=== PATIENT | female | born 1955 | race Caucasian/White ===

== ENCOUNTER 2016-08-04 19:40 | Inpatient (IN) | payer OTHER ==
[~2016-08-04] VITALS: Ht 160 cm; Wt 76.4 kg
[~2016-08-04 19:40] MED LIST: ABILIFY2 MG PO; ALBENZA200 MG PO; AMITRIPTYLINE H25 MG PO; ANAPROX DS550 M1 PO; ATARAX,VISTARIL25 MG PO; ATARAX,VISTARIL50 MG PO; BENTYL20 MG PO; BUTALB-APAP-CA1 EACH PO; BUTALB-CAFF-AC1 EACH PO; CELEXA20 MG PO; CIPRO500 MG PO; CLONAZEPAM0.5 MG PO; DIVALPROEX SOD250 M1 PO; GABAPENTIN300 MG PO; KEFLEX500 MG PO; KLONOPIN; NORCO 5/3251 TABLET PO; OMEPRAZOLE20 MG PO; PERCOCET 5/31 TABLET PO; PHENERGAN-CODE120 ML PO; PREDNISONE10 MG PO; SEROQUEL100 MG PO; SEROQUEL50 MG PO; TRAZODONE HCL100 MG PO; TRAZODONE HCL150 MG PO; TRAZODONE HCL50 MG PO; TYLENOL WITH C1 EACH PO; VICODIN,LORT1 TABLET PO; VIIBRYD20 MG PO; VIIBRYD40 MG PO; ZOFRAN8 MG PO; [UNRECOGNIZED DRUG - REMARK]
[2016-08-04 21:18] LABS: CHLORIDE 102 mEq/L (99-109); POTASSIUM 2.9 mEq/L (3.7-5.4); SODIUM 140 mEq/L (136-147)
[2016-08-04 21:19] LABS: GLUCOSE 108 mg/dL (70-99)
[2016-08-04 21:21] LABS: ANION GAP 13 MEQ/L (2-14); HEMATOCRIT 39.2 % (36.0-46.0); MCH 28.8 PG (29.0-34.0); MCHC 34.4 G/DL (30.0-36.0); MCV 83.6 FL (83-99); MEAN PLAT.VOLUME 10.3 uM^3 (9.5-12.4); PLATELET COUNT 442 K/uL (156-360); RED BLOOD COUNT 4.69 M/uL (3.80-5.20); WHITE BLOOD COUNT 18.5 K/uL (4.1-10.2)
[2016-08-04 21:23] LABS: GFR ESTIMATE (CALCULATED) > 59 mL/min/
[2016-08-04 21:24] LABS: UREA NITROGEN (BUN) 6 mg/dL (9-23)
[2016-08-04 21:54] LABS: D-DIMER ELISA 0.74 mg/L FEU (< 0.57)
[2016-08-04 22:45] LABS: INFLUENZA A VIRAL ANTIGEN NEGATIVE; INFLUENZA B VIRAL ANTIGEN NEGATIVE
[2016-08-04] MEDS ORDERED: SERTRALINE HCL100 MG PO (23:02)
[2016-08-05 01:06] VITALS: BP 121/70
[2016-08-05 01:20] VITALS: BP 121/70
[2016-08-05 05:27] VITALS: BP 108/63
[2016-08-05 06:30] LABS: HEMATOCRIT 35.2 % (36.0-46.0); MCH 28.1 PG (29.0-34.0); MCHC 33.2 G/DL (30.0-36.0); MCV 84.4 FL (83-99); MEAN PLAT.VOLUME 10.3 uM^3 (9.5-12.4); PLATELET COUNT 415 K/uL (156-360); RBC DIS.WIDTH-SD 39.3 % (39-53); RED BLOOD COUNT 4.17 M/uL (3.80-5.20); WHITE BLOOD COUNT 17.3 K/uL (4.1-10.2)
[2016-08-05 06:51] LABS: EOSINOPHIL (%) 0.1 % (0-5); IMMATURE GRANULOCYTE (%) 1.6 % (0.0-0.7); IMMATURE GRANULOCYTE COUNT 0.3 K/uL; LYMPHOCYTE COUNT 1.3 K/uL (1.0-2.8); MONOCYTE (%) 1.4 % (3-12); MONOCYTE COUNT 0.2 K/uL (0-0.8); NEUTROPHIL (%) 89.4 % (45-76); NEUTROPHIL COUNT 15.4 K/uL (1.8-6.4)
[2016-08-05 06:54] LABS: ANION GAP 10 MEQ/L (2-14); CHLORIDE 106 MEQ/L (99-109); GFR ESTIMATE (CALCULATED) > 59 mL/min/; GLUCOSE 172 mg/dL (70-99); SAMPLE HEMOLYSIS CHECK 0; SAMPLE ICTERIC CHECK 0; SAMPLE LIPEMIA CHECK 0; SODIUM 141 MEQ/L (136-147); UREA NITROGEN (BUN) 6 mg/dL (9-23)
[2016-08-05 06:55] LABS: POTASSIUM 3.6 MEQ/L (3.7-5.4)
[2016-08-05 08:09] VITALS: BP 117/67
[2016-08-05 17:35] VITALS: BP 126/83
[2016-08-05 20:24] VITALS: BP 121/65
[2016-08-06 05:57] LABS: HEMATOCRIT 33.3 % (36.0-46.0); MCHC 33.3 G/DL (30.0-36.0); MCV 84.1 FL (83-99); MEAN PLAT.VOLUME 10.3 uM^3 (9.5-12.4); PLATELET COUNT 458 K/uL (156-360); RBC DIS.WIDTH-SD 39.1 % (39-53); RED BLOOD COUNT 3.96 M/uL (3.80-5.20)
[2016-08-06 05:58] LABS: WHITE BLOOD COUNT 28.5 K/uL (4.1-10.2)
[2016-08-06 06:19] LABS: ANION GAP 12 MEQ/L (2-14); CHLORIDE 108 MEQ/L (99-109); GFR ESTIMATE (CALCULATED) > 59 mL/min/; GLUCOSE 139 mg/dL (70-99); POTASSIUM 3.6 MEQ/L (3.7-5.4); SAMPLE HEMOLYSIS CHECK 0; SAMPLE ICTERIC CHECK 0; SAMPLE LIPEMIA CHECK 0; SODIUM 142 MEQ/L (136-147); UREA NITROGEN (BUN) 14 mg/dL (9-23)
[2016-08-06 07:15] VITALS: BP 135/66
[2016-08-06 08:51] LABS: MAGNESIUM 1.9 mg/dl (1.3-2.7)
[2016-08-06 11:54] VITALS: BP 126/68
[2016-08-06 16:34] VITALS: BP 130/64
[2016-08-06 20:20] VITALS: BP 135/81
[2016-08-07 00:09] VITALS: BP 139/79
[2016-08-07 07:22] LABS: INTERNAL CONTROL VALID? YES
[2016-08-07 08:53] VITALS: BP 139/87
[2016-08-07 16:08] VITALS: BP 130/77
[2016-08-07 19:57] VITALS: BP 165/77
[2016-08-07 23:25] VITALS: BP 138/81
[2016-08-08 07:14] VITALS: BP 150/88
[2016-08-08 15:13] VITALS: BP 157/81
[2016-08-08 23:56] VITALS: BP 143/75
[2016-08-09 03:56] VITALS: BP 163/82
[2016-08-09 08:27] VITALS: BP 175/85
[2016-08-09 09:26] LABS: HEMATOCRIT 35.9 % (36.0-46.0); MCH 28.4 PG (29.0-34.0); MCHC 33.4 G/DL (30.0-36.0); MCV 84.9 FL (83-99); MEAN PLAT.VOLUME 10.5 uM^3 (9.5-12.4); PLATELET COUNT 434 K/uL (156-360); RBC DIS.WIDTH-CV 13.2 % (11.8-14.6); RBC DIS.WIDTH-SD 40.1 % (39-53); RED BLOOD COUNT 4.23 M/uL (3.80-5.20)
[2016-08-09 09:27] LABS: WHITE BLOOD COUNT 17.6 K/uL (4.1-10.2)
[2016-08-09 09:55] LABS: ANION GAP 12 MEQ/L (2-14); CHLORIDE 103 MEQ/L (99-109); GFR ESTIMATE (CALCULATED) > 59 mL/min/; GLUCOSE 117 mg/dL (70-99); POTASSIUM 3.6 MEQ/L (3.7-5.4); SAMPLE HEMOLYSIS CHECK 0; SAMPLE ICTERIC CHECK 0; SAMPLE LIPEMIA CHECK 0; SODIUM 141 MEQ/L (136-147); UREA NITROGEN (BUN) 17 mg/dL (9-23)
[2016-08-09] MEDS ORDERED: SPIRIVA RESPIMAT4 GM IH (12:08)
[2016-08-09] MEDS ORDERED: CEFDINIR300 MG PO (12:08)
[2016-08-09] MEDS ORDERED: PREDNISONE10 MG PO (12:08)
[2016-08-09] MEDS ORDERED: PROVENTIL,VENTOL2 MG PO (12:08)
[2016-08-09] MEDS ORDERED: ADVAIR HFA120 INHALA IH (12:08)
[2016-08-09] MEDS ORDERED: TUDORZA PRESS400 MCG IH (16:20)
== END 2016-08-09 15:19 | disposition home or self-care (01) | DRG 190 ==
LOC: EME 19:40 → RME 19:40 → EDOF 23:37 → 3EAST 23:37
PROVIDERS: Hospitalist; Internal Medicine; Internal Medicine Infectious Disease; Nurse Practitioner Adult Health; Physician Assistant
DX: J44.0 Chronic obstructive pulmonary disease with (acute) lower respiratory infection (principal); J18.9 Pneumonia, unspecified organism; J90 Pleural effusion, not elsewhere classified; J44.1 Chronic obstructive pulmonary disease with (acute) exacerbation; E87.6 Hypokalemia; F31.9 Bipolar disorder, unspecified; K44.9 Diaphragmatic hernia without obstruction or gangrene; Z87.891 Personal history of nicotine dependence; Z77.22 Contact with and (suspected) exposure to environmental tobacco smoke (acute) (chronic)
CPT/HCPCS: 71010; 71020; 71275; 80048; 83605; 83735; 85025; 85027; 85379; 87040; 87070; 87205; 87449; 87502; 93005; 94640; 94640 76; 94799; 99202; 99281; 99285; J0456; J0696; J1644; J2930; J3480; J7030; J7050; J7512

== ENCOUNTER 2016-09-07 16:47 | Emergency (ER) | payer OTHER ==
[~2016-09-07] VITALS: Ht 160 cm; Wt 75.6 kg
[~2016-09-07 16:47] MED LIST changes: +ADVAIR HFA120 INHALA IH; +CEFDINIR300 MG PO; +PROVENTIL,VENTOL2 MG PO; +SERTRALINE HCL100 MG PO; +SPIRIVA RESPIMAT4 GM IH; +TUDORZA PRESS400 MCG IH
[2016-09-07 17:21] LABS: HEMATOCRIT 42.2 % (36.0-46.0); MCH 27.5 PG (29.0-34.0); MCHC 32.5 G/DL (30.0-36.0); MCV 84.6 FL (83-99); MEAN PLAT.VOLUME 9.4 uM^3 (9.5-12.4); PLATELET COUNT 293 K/uL (156-360); RBC DIS.WIDTH-CV 14.5 % (11.8-14.6); RBC DIS.WIDTH-SD 44.2 % (39-53); RED BLOOD COUNT 4.99 M/uL (3.80-5.20); WHITE BLOOD COUNT 8.7 K/uL (4.1-10.2)
[2016-09-07 17:30] LABS: CHLORIDE 107 mEq/L (99-109); SODIUM 140 mEq/L (136-147)
[2016-09-07 17:32] LABS: GLUCOSE 102 mg/dL (70-99)
[2016-09-07 17:33] LABS: ANION GAP 10 MEQ/L (2-14)
[2016-09-07 17:34] LABS: TOTAL BILIRUBIN 0.5 mg/dL (0.0-1.0)
[2016-09-07 17:35] LABS: ALKALINE PHOSPHATASE 106 IU/L (3-129)
[2016-09-07 17:36] LABS: GFR ESTIMATE (CALCULATED) > 59 mL/min/
[2016-09-07 17:37] LABS: UREA NITROGEN (BUN) 11 mg/dL (9-23)
[2016-09-07 17:39] LABS: LIPASE 22 U/L (1.0-51.0)
[2016-09-07 18:48] VITALS: BP 133/97
== END 2016-09-07 19:14 | disposition home or self-care (01) ==
LOC: EME 16:47
PROVIDERS: Emergency Medicine
DX: R10.32 Left lower quadrant pain (principal); I10 Essential (primary) hypertension; K21.9 Gastro-esophageal reflux disease without esophagitis; Z87.442 Personal history of urinary calculi; Z87.891 Personal history of nicotine dependence
CPT/HCPCS: 71020; 74177; 80053; 83690; 85027; 99281; 99285; J2270; J7030

== ENCOUNTER 2016-10-10 20:18 | Emergency (ER) | payer OTHER ==
[~2016-10-10] VITALS: Ht 160 cm; Wt 73.1 kg
[2016-10-10 21:48] LABS: ADD MIUA? YES; BILIRUBIN NEGATIVE; BLOOD NEGATIVE; GLUCOSE (STRIP) NEGATIVE; KETONES 5; LEUKOCYTES SMALL; NITRITE NEGATIVE; PROTEIN (STRIP) 30; SPECIFIC GRAVITY 1.024 (1.000-1.030); UROBILINOGEN 0.2 MG/DL (0.2-1.0)
[2016-10-10 21:58] LABS: BACTERIA RARE /HPF; COLOR DK YELLOW ((YELLOW)); EPITHELIAL CELLS 1+ /HPF; MUCUS 4+ /LPF; RED BLOOD CELLS 0-5 /HPF (0-5)
[2016-10-10 22:07] LABS: INFLUENZA A VIRAL ANTIGEN NEGATIVE; INFLUENZA B VIRAL ANTIGEN NEGATIVE
[2016-10-10] MEDS ORDERED: CIPRO500 MG PO (22:18)
[2016-10-10 22:49] VITALS: BP 144/96
== END 2016-10-10 22:53 | disposition home or self-care (01) ==
LOC: EME 20:18
PROVIDERS: Emergency Medicine
DX: J06.9 Acute upper respiratory infection, unspecified (principal); N30.00 Acute cystitis without hematuria; I10 Essential (primary) hypertension; K21.9 Gastro-esophageal reflux disease without esophagitis; Z87.442 Personal history of urinary calculi; Z87.891 Personal history of nicotine dependence
CPT/HCPCS: 71020; 81003; 87502; 99281; 99284

== ENCOUNTER 2017-01-19 13:00 | Day surgery (SDC) | payer OTHER ==
[~2017-01-19] VITALS: Ht 160 cm; Wt 72.6 kg
[~2017-01-19 13:00] MED LIST changes: +FLEXERIL5 MG PO; +PERCOCET 7.51 TABLET PO
== END 2017-01-19 15:04 | disposition home or self-care (01) ==
LOC: PAIN 13:00 → SDC 14:15 → PAIN 15:04
PROC: 3E0S33Z Introduction of Anti-inflammatory into Epidural Space, Percutaneous Approach (ICD-10-PCS; principal; 2017-01-19)
DX: M51.16 Intervertebral disc disorders with radiculopathy, lumbar region (principal); F41.9 Anxiety disorder, unspecified; G89.29 Other chronic pain; M47.26 Other spondylosis with radiculopathy, lumbar region; M48.06 Spinal stenosis, lumbar region; Z87.891 Personal history of nicotine dependence; Z88.0 Allergy status to penicillin; Z88.6 Allergy status to analgesic agent; F32.9 Major depressive disorder, single episode, unspecified; K21.9 Gastro-esophageal reflux disease without esophagitis
CPT/HCPCS: J1100; J2250; J3010

== ENCOUNTER 2017-01-28 20:13 | Emergency (ER) | payer OTHER ==
[~2017-01-28] VITALS: Ht 157.5 cm; Wt 75.6 kg
[2017-01-28 21:30] LABS: HEMATOCRIT 39.8 % (36.0-46.0); MCHC 32.9 G/DL (30.0-36.0); MCV 82.1 FL (83-99); PLATELET COUNT 267 K/uL (156-360); RBC DIS.WIDTH-CV 13.7 % (11.8-14.6); RBC DIS.WIDTH-SD 40.7 % (39-53); RED BLOOD COUNT 4.85 M/uL (3.80-5.20); WHITE BLOOD COUNT 11.6 K/uL (4.1-10.2)
[2017-01-28 21:40] LABS: CHLORIDE 108 mEq/L (99-109); POTASSIUM 3.2 mEq/L (3.7-5.4); SODIUM 143 mEq/L (136-147)
[2017-01-28 21:42] LABS: GLUCOSE 100 mg/dL (70-99)
[2017-01-28 21:43] LABS: ANION GAP 11 MEQ/L (2-14)
[2017-01-28 21:44] LABS: TOTAL BILIRUBIN 0.8 mg/dL (0.0-1.0)
[2017-01-28 21:45] LABS: ALKALINE PHOSPHATASE 101 IU/L (3-129)
[2017-01-28 21:46] LABS: GFR ESTIMATE (CALCULATED) > 59 mL/min/
[2017-01-28 21:47] LABS: UREA NITROGEN (BUN) 13 mg/dL (9-23)
[2017-01-28] MEDS ORDERED: ZITHROMAX Z-PA250 MG PO (22:31)
[2017-01-28] MEDS ORDERED: PREDNISONE10 M1 PO (22:31)
[2017-01-28 22:37] VITALS: BP 142/87
== END 2017-01-28 22:37 | disposition home or self-care (01) ==
LOC: EME 20:13 → RME 20:13
PROVIDERS: Physician Assistant
DX: J06.9 Acute upper respiratory infection, unspecified (principal); E87.6 Hypokalemia
CPT/HCPCS: 71020; 80053; 85027; 93005; 99281; 99284

== ENCOUNTER 2017-03-10 08:56 | Day surgery (SDC) | payer OTHER ==
[~2017-03-10] VITALS: Ht 160 cm; Wt 72.6 kg
[~2017-03-10 08:56] MED LIST changes: +PREDNISONE10 M1 PO; +ZITHROMAX Z-PA250 MG PO
== END 2017-03-10 11:25 | disposition home or self-care (01) ==
LOC: PAIN 08:56 → SDC 11:15 → PAIN 11:15
DX: M47.26 Other spondylosis with radiculopathy, lumbar region (principal); M54.5 Low back pain; G89.29 Other chronic pain; M48.06 Spinal stenosis, lumbar region; K21.9 Gastro-esophageal reflux disease without esophagitis; F41.8 Other specified anxiety disorders; Z79.891 Long term (current) use of opiate analgesic; Z88.0 Allergy status to penicillin; Z87.891 Personal history of nicotine dependence
CPT/HCPCS: J1100; J2250; J3010

== ENCOUNTER 2017-05-19 17:15 | Emergency (ER) | payer OTHER ==
[~2017-05-19] VITALS: Ht 157.5 cm; Wt 70.0 kg
[2017-05-19] MEDS ORDERED: ULTRAM50 MG PO ×2 (20:20→20:21)
[2017-05-19 20:28] VITALS: BP 150/102
== END 2017-05-19 20:28 | disposition home or self-care (01) ==
LOC: EME 17:15
DX: G56.01 Carpal tunnel syndrome, right upper limb (principal); F32.9 Major depressive disorder, single episode, unspecified
CPT/HCPCS: 73110; 99281; 99283

== ENCOUNTER 2017-06-18 12:19 | Day surgery (SDC) | payer OTHER ==
[~2017-06-18 12:19] MED LIST changes: +ULTRAM50 MG PO
== END 2017-06-18 14:20 | disposition home or self-care (01) ==
LOC: PAIN 12:19 → SDC 13:15 → PAIN 14:20
DX: M47.26 Other spondylosis with radiculopathy, lumbar region (principal); M51.16 Intervertebral disc disorders with radiculopathy, lumbar region; G89.29 Other chronic pain; M48.061 Spinal stenosis, lumbar region without neurogenic claudication; F41.8 Other specified anxiety disorders; K21.9 Gastro-esophageal reflux disease without esophagitis; Z87.891 Personal history of nicotine dependence; Z88.0 Allergy status to penicillin
CPT/HCPCS: J1030; J2250; J3010; S0020

== ENCOUNTER 2017-06-25 12:12 | Day surgery (SDC) | payer OTHER ==
[~2017-06-25] VITALS: Ht 160 cm; Wt 67.1 kg
== END 2017-06-25 14:14 | disposition home or self-care (01) ==
LOC: PAIN 12:12
PROC: BR161ZZ Fluoroscopy of Lumbar Facet Joint(s) using Low Osmolar Contrast (ICD-10-PCS; principal; 2017-06-25)
PROC: 3E0T3BZ Introduction of Anesthetic Agent into Peripheral Nerves and Plexi, Percutaneous Approach (ICD-10-PCS; principal; 2017-06-25)
PROC: 3E0T33Z Introduction of Anti-inflammatory into Peripheral Nerves and Plexi, Percutaneous Approach (ICD-10-PCS; principal; 2017-06-25)
DX: M47.26 Other spondylosis with radiculopathy, lumbar region (principal); M48.061 Spinal stenosis, lumbar region without neurogenic claudication; M54.5 Low back pain; G89.29 Other chronic pain; M51.16 Intervertebral disc disorders with radiculopathy, lumbar region; Z87.891 Personal history of nicotine dependence; K21.9 Gastro-esophageal reflux disease without esophagitis; F41.8 Other specified anxiety disorders; Z79.891 Long term (current) use of opiate analgesic; Z88.0 Allergy status to penicillin; R94.31 Abnormal electrocardiogram [ECG] [EKG]
CPT/HCPCS: J1030; J2250; J3010; S0020

== ENCOUNTER 2017-09-03 12:59 | Day surgery (SDC) | payer OTHER ==
[~2017-09-03] VITALS: Ht 160 cm; Wt 63.5 kg
[~2017-09-03 12:59] MED LIST changes: +DESYREL100 MG PO; +LYRICA100 MG PO; -SERTRALINE HCL100 MG PO; +ZOLOFT100 MG PO
== END 2017-09-03 15:00 | disposition home or self-care (01) ==
LOC: PAIN 12:59
DX: M51.16 Intervertebral disc disorders with radiculopathy, lumbar region (principal); M47.816 Spondylosis without myelopathy or radiculopathy, lumbar region; G89.29 Other chronic pain; M48.061 Spinal stenosis, lumbar region without neurogenic claudication; F41.9 Anxiety disorder, unspecified; K21.9 Gastro-esophageal reflux disease without esophagitis; Z79.891 Long term (current) use of opiate analgesic; Z88.0 Allergy status to penicillin; Z87.891 Personal history of nicotine dependence
CPT/HCPCS: J1100; J2250

== ENCOUNTER 2017-09-29 10:51 | Day surgery (SDC) | payer OTHER ==
[~2017-09-29] VITALS: Ht 160 cm; Wt 63.5 kg
== END 2017-09-29 13:39 | disposition home or self-care (01) ==
LOC: PAIN 10:51 → SDC 11:30 → PAIN 11:30
DX: M47.816 Spondylosis without myelopathy or radiculopathy, lumbar region (principal); M51.36 Other intervertebral disc degeneration, lumbar region; R20.2 Paresthesia of skin; R20.0 Anesthesia of skin; G89.29 Other chronic pain; K21.9 Gastro-esophageal reflux disease without esophagitis; Z87.891 Personal history of nicotine dependence
CPT/HCPCS: 93005; J1030; J2250; S0020

== ENCOUNTER 2017-09-30 16:47 | Observation (INO) | payer OTHER ==
[~2017-09-30] VITALS: Ht 160 cm; Wt 72.0 kg
[2017-09-30 17:17] LABS: HEMATOCRIT 40.2 % (36.0-46.0); HEMOGLOBIN 13.6 G/DL (11.9-15.5); MCH 28.6 PG (29.0-34.0); MCHC 33.8 G/DL (30.0-36.0); MCV 84.6 FL (83-99); PLATELET COUNT 263 K/uL (156-360); RBC DIS.WIDTH-CV 12.6 % (11.8-14.6); RBC DIS.WIDTH-SD 38.5 % (39-53); RED BLOOD COUNT 4.75 M/uL (3.80-5.20); WHITE BLOOD COUNT 10.4 K/uL (4.1-10.2)
[2017-09-30 17:28] LABS: CHLORIDE 107 mEq/L (99-109); POTASSIUM 3.6 mEq/L (3.7-5.4); SODIUM 143 mEq/L (136-147)
[2017-09-30 17:30] LABS: GLUCOSE 95 mg/dL (70-99)
[2017-09-30 17:34] LABS: CREATININE 0.9 mg/dL (0.6-1.3); GFR ESTIMATE (CALCULATED) > 59 mL/min/
[2017-09-30 17:35] LABS: UREA NITROGEN (BUN) 16 mg/dL (9-23)
[2017-09-30 17:43] LABS: TROP-I INTERPRETATION NEGATIVE; TROPONIN-I < 0.01 ng/mL (0.0-0.30)
[2017-09-30 21:35] VITALS: BP 127/55
[2017-09-30 23:46] LABS: TROP-I INTERPRETATION NEGATIVE; TROPONIN-I < 0.01 ng/mL (0.0-0.30)
[2017-10-01] VITALS (8 sets, daily range): BP systolic 15–134; BP diastolic 54–82
[2017-10-01 05:56] LABS: HEMATOCRIT 34.7 % (36.0-46.0); MCH 28.4 PG (29.0-34.0); MCHC 33.4 G/DL (30.0-36.0); MCV 84.8 FL (83-99); PLATELET COUNT 237 K/uL (156-360); RBC DIS.WIDTH-CV 12.6 % (11.8-14.6); RBC DIS.WIDTH-SD 38.7 % (39-53); RED BLOOD COUNT 4.09 M/uL (3.80-5.20); WHITE BLOOD COUNT 7.8 K/uL (4.1-10.2)
[2017-10-01 06:00] LABS: HEMOGLOBIN 11.6 G/DL (11.9-15.5)
[2017-10-01 06:16] LABS: CHLORIDE 106 MEQ/L (99-109); GFR ESTIMATE (CALCULATED) > 59 mL/min/; GLUCOSE 87 mg/dL (70-99); POTASSIUM 4.2 MEQ/L (3.7-5.4); SODIUM 140 MEQ/L (136-147); UREA NITROGEN (BUN) 17 mg/dL (9-23)
[2017-10-01 06:17] LABS: TROP-I INTERPRETATION NEGATIVE; TROPONIN-I 0.01 ng/mL (0.0-0.30)
[2017-10-01 12:20] LABS: D-DIMER ELISA < 150.00 ng/mLDDU (<230)
[2017-10-02 00:11] LABS: APPEARANCE CLEAR ((CLEAR)); BILIRUBIN NEGATIVE; BLOOD NEGATIVE; COLOR YELLOW ((YELLOW)); GLUCOSE (STRIP) NEGATIVE; KETONES NEGATIVE; LEUKOCYTES LARGE; NITRITE NEGATIVE; PROTEIN (STRIP) NEGATIVE; SPECIFIC GRAVITY 1.008 (1.000-1.030); UROBILINOGEN 0.2 MG/DL (0.2-1.0)
[2017-10-02 00:18] LABS: BACTERIA NONE SEEN /HPF; EPITHELIAL CELLS 1+ /HPF; HYALINE CASTS 0-5 /LPF; MUCUS TRACE /LPF; RED BLOOD CELLS 0-5 /HPF (0-5); UCUL ADDED? YES; WHITE BLOOD CELLS TNTC /HPF (0-5)
[2017-10-02 04:19] VITALS: BP 104/71
[2017-10-02 05:47] LABS: BASOPHIL (%) 0.5 % (0-1); EOSINOPHIL (%) 6.7 % (0-5); EOSINOPHIL COUNT 0.5 K/uL (0-0.3); HEMATOCRIT 35.2 % (36.0-46.0); HEMOGLOBIN 11.7 G/DL (11.9-15.5); IMMATURE GRANULOCYTE (%) 0.3 % (0.0-0.7); LYMPHOCYTE COUNT 4.7 K/uL (1.0-2.8); MCH 28.3 PG (29.0-34.0); MCHC 33.2 G/DL (30.0-36.0); MCV 85.2 FL (83-99); MONOCYTE (%) 8.2 % (3-12); MONOCYTE COUNT 0.6 K/uL (0-0.8); NEUTROPHIL (%) 23.3 % (45-76); NEUTROPHIL COUNT 1.8 K/uL (1.8-6.4); PLATELET COUNT 235 K/uL (156-360); RBC DIS.WIDTH-CV 12.4 % (11.8-14.6); RBC DIS.WIDTH-SD 38.8 % (39-53); RED BLOOD COUNT 4.13 M/uL (3.80-5.20); WHITE BLOOD COUNT 7.7 K/uL (4.1-10.2)
[2017-10-02 06:12] LABS: ALBUMIN 3.3 G/DL (3.2-4.8); ALKALINE PHOSPHATASE 71 IU/L (3-129); ALT (GPT) 13 IU/L (3-49); AST (GOT) 18 IU/L (2-34); CHLORIDE 106 MEQ/L (99-109); GFR ESTIMATE (CALCULATED) > 59 mL/min/; GLUCOSE 89 mg/dL (70-99); POTASSIUM 4.2 MEQ/L (3.7-5.4); SODIUM 139 MEQ/L (136-147); TOTAL BILIRUBIN 0.5 MG/DL (0.0-1.0); TOTAL PROTEIN 5.6 G/DL (6.4-8.3); UREA NITROGEN (BUN) 16 mg/dL (9-23)
[2017-10-02 08:00] VITALS: BP 110/66
[2017-10-02 16:06] VITALS: BP 133/85
[2017-10-02 19:22] VITALS: BP 113/77
[2017-10-02 23:58] VITALS: BP 94/51
[2017-10-03 03:55] VITALS: BP 106/55
[2017-10-03 09:35] VITALS: BP 107/63
[2017-10-03 12:22] VITALS: BP 113/76
[2017-10-03] MEDS ORDERED: KEFLEX500 MG PO (14:17)
== END 2017-10-03 18:11 | disposition home or self-care (01) ==
LOC: EME 16:47 → EDOF 19:34 → 5WEST 19:34 → EDOF 19:34 → ENRESERV 19:37 → 5WEST 21:21 → ENPENDDIS 10-03 → 5WEST 10-03 18:11
PROVIDERS: Hospitalist; Nurse Practitioner Adult Health
DX: R07.89 Other chest pain (principal); R94.39 Abnormal result of other cardiovascular function study; E87.6 Hypokalemia; I10 Essential (primary) hypertension; F31.9 Bipolar disorder, unspecified; E78.5 Hyperlipidemia, unspecified; G89.29 Other chronic pain; M54.5 Low back pain; R11.0 Nausea; R51 Headache; R10.9 Unspecified abdominal pain; K21.9 Gastro-esophageal reflux disease without esophagitis; J02.9 Acute pharyngitis, unspecified; R26.81 Unsteadiness on feet; Z87.442 Personal history of urinary calculi; Z82.49 Family history of ischemic heart disease and other diseases of the circulatory system; Z83.3 Family history of diabetes mellitus; Z88.6 Allergy status to analgesic agent
CPT/HCPCS: 71046; 78452; 80048; 80053; 81003; 84484; 85025; 85027; 85379; 87086; 87651 90; 93005; 93017; 99202; 99281; 99285; A9500; G0378; J0696; J2785; J3010; J7040

== ENCOUNTER 2017-11-16 08:19 | Day surgery (SDC) | payer OTHER ==
[~2017-11-16] VITALS: Ht 160 cm; Wt 71.2 kg
[~2017-11-16 08:19] MED LIST changes: +TOPROL XL25 MG PO
== END 2017-11-16 10:15 | disposition home or self-care (01) ==
LOC: PAIN 08:19 → SDC 09:15 → PAIN 09:15
DX: M47.816 Spondylosis without myelopathy or radiculopathy, lumbar region (principal); M51.16 Intervertebral disc disorders with radiculopathy, lumbar region; M48.061 Spinal stenosis, lumbar region without neurogenic claudication; I10 Essential (primary) hypertension; F41.8 Other specified anxiety disorders; K21.9 Gastro-esophageal reflux disease without esophagitis; Z88.6 Allergy status to analgesic agent; Z79.891 Long term (current) use of opiate analgesic; Z87.891 Personal history of nicotine dependence
CPT/HCPCS: J1030; J2250; S0020